=== PATIENT | male | born 1985 ===

== ENCOUNTER → 2018-06-27 22:55 | Outpatient (REF) | payer OTHER, SELFPAY ==
[2018-06-28 01:44] LABS: Add Manual Diff / Slide Review NO; Basophils Absolute Auto 0 /uL (0-100); Basophils Percent Auto 0.6 % (0-2); Eosinophils Absolute Auto 200 /uL (0-450); Eosinophils Percent Auto 2.5 % (2-4); Hematocrit 42.8 % (41-53); Hemoglobin 14.3 g/dL (13.5-17.5); Lymphocytes Absolute Auto 1600 /uL (1100-4500); Mean Corpuscular HGB Conc 33.3 % (30-36); Mean Corpuscular Hemoglobin 29.4 PG (26-34); Mean Corpuscular Volume 88.1 fL (80-100); Monocytes Absolute Auto 500 /uL (0-900); Monocytes Percent Auto 6.7 % (3-14); Neutrophils Absolute Auto 4800 /uL (1500-7000); Neutrophils Percent Auto 67.2 % (50-75); Platelet Count 232 X10^3/uL (150-400); Red Blood Cell Count 4.86 X10^6/uL (4.5-5.9); Red Cell Distribution Width 13.5 % (11.6-14.8); White Blood Cell Count 7.1 X10^3/uL (4.5-11.0)
[2018-06-28 02:33] LABS: Alanine Aminotransferase 32 IU/L (21-72); Albumin 4.4 g/dL (3.5-5.0); Albumin Globulin Ratio 1.6 (1.0-2.8); Alkaline Phosphatase 68 U/L (38-126); Aspartate Aminotransferase 24 IU/L (17-59); BUN Creatinine Ratio 17.8 (6-22); Bilirubin Total 0.4 mg/dL (0.2-1.3); Blood Urea Nitrogen 16 mg/dL (9-20); Calcium 9.3 mg/dL (8.4-10.2); Carbon Dioxide 28 mmol/L (22-32); Chloride 101 mmol/L (98-107); Estimated Glomerular Filt Rate > 60.0 mL/min (>60); Globulin 2.7 g/dL (1.7-4.1); Glucose 102 mg/dL (70-100); HEMOLYSIS < 15 (0-50); Potassium 4.1 mmol/L (3.4-5.1); Sodium 138 mmol/L (137-145); Total Protein 7.1 g/dL (6.3-8.2)
[2018-06-28 02:59] LABS: TSH w/ Reflex to FT4 0.42 uIU/mL (0.47-4.68)
[2018-06-28 05:56] LABS: Free T4, Direct Thyroxine 1.25 ng/dL (0.78-2.19)
[2018-07-03 04:02] LABS: Testosterone Free 74.8 pg/mL (35.0-155.0); Testosterone Total 372 ng/dL (250-1100)
== END ==
LOC: LAB 22:55
PROVIDERS: Visit Provider Naturopath
DX: F43.23 Adjustment disorder with mixed anxiety and depressed mood (principal); Z13.89 Encounter for screening for other disorder; F90.0 Attention-deficit hyperactivity disorder, predominantly inattentive type; R53.83 Other fatigue
CPT/HCPCS: 36415; 80053; 82728; 84402; 84403; 84439; 84443; 85025